=== PATIENT | female | born 1975 | race Asian ===

== ENCOUNTER 2025-03-19 11:48 | Inpatient (IN) | payer BC ==
[~2025-03-19] VITALS: Ht 160 cm; Wt 79.4 kg
[2025-03-19 11:50] VITALS: O2SAT 98
[2025-03-19] MEDS: ONDANSETRON HCL 4MG/2ML INJ IV ONE ×2 (13:41→15:50)
[2025-03-19] MEDS: CLONIDINE 0.1MG TABLET PO ONE (13:42)
[2025-03-19] MEDS: MORPHINE SULFATE 4 MG/ML INJ (FOR IV/IM USE) IV ONE ×2 (13:42→15:50)
[2025-03-19] MEDS: KETOROLAC 15MG/ML VIAL IV ONE (13:42)
[2025-03-19] MEDS: SODIUM CHLORIDE 0.9% 1,000 ML IV ONE (13:43)
[2025-03-19 14:16] LABS: BASOPHILS % 0.4 % (0.0-2.0); EOSINOPHILS % 2.6 % (0.0-5.0); HEMATOCRIT. 35.8 % (36.0-48.0); HEMOGLOBIN. 11.8 g/dL (12.0-16.0); LYMPHOCYTES % 24.6 % (20.0-50.0); MEAN PLATELET VOLUME 8.1 fl (7.4-10.4); MONOCYTES % 7.4 % (2.0-8.0); NEUTROPHILS % 65.0 % (40.0-76.0); PLATELET 196 x1000/uL (130-400); RED BLOOD CELL COUNT 3.94 mill/uL (4.2-5.4); RED CELL DISTRIBUTION WIDTH 13.2 % (11.6-14.6)
[2025-03-19 14:33] LABS: HCG SCREEN NEGATIVE
[2025-03-19 14:36] LABS: CREATININE 0.8 mg/dL (0.6-1.0); UREA NITROGEN BLOOD 16 mg/dL (9-23)
[2025-03-19 14:37] LABS: PROTEIN TOTAL 6.3 g/dL (6.0-8.3)
[2025-03-19 14:38] LABS: ASPARTATE AMINOTRANSFERASE 16 IU/L (<34); BILIRUBIN DIRECT 0.2 mg/dL (<=3.0); TROPONIN I HIGH SENSITIVITY 5 ng/L (3.0-34)
[2025-03-19 14:39] LABS: BILIRUBIN TOTAL 0.5 mg/dL (0.1-1.0)
[2025-03-19 17:01] LABS: CLARITY URINE CLOUDY (CLEAR); GLUCOSE URINE NEGATIVE (NEGATIVE); KETONES URINE NEGATIVE (NEGATIVE); LEUKOCYTE ESTERASE URINE NEGATIVE (NEGATIVE); NITRITE URINE NEGATIVE (NEGATIVE); OCCULT BLOOD URINE NEGATIVE (NEGATIVE); PH URINE 7.0 (4.5-8.0); PROTEIN URINE NEGATIVE (NEGATIVE); SPECIFIC GRAVITY URINE 1.015 (1.005-1.030); UROBILINOGEN URINE 0.2 E.U./dL (0.2-1.0)
[2025-03-19 18:08] LABS: COLOR URINE STRAW (YELLOW)
[2025-03-19 18:10] LABS: RBC URINE NONE SEEN /hpf (0-2); WBC URINE NONE SEEN /hpf (0-2)
[2025-03-19 18:11] LABS: AMORPHOUS SEDIMENT URINE 3+ /lpf; BACTERIA URINE NONE SEEN; SQUAMOUS EPITHELIAL CELL URINE FEW /lpf (RARE/1+)
[2025-03-19 20:00] VITALS: BP 171/98; PULSE 61; RESP 20; TEMP 35.862
[2025-03-19] MEDS: MORPHINE SULFATE 4 MG/ML INJ (FOR IV/IM USE) IV NR (22:27)
[2025-03-19] MEDS ORDERED: ZOLPIDEM TARTRATE 5MG TABLET PO PRN (22:45)
[2025-03-19] MEDS ORDERED: DIPHENHYDRAMINE 50MG/ML VIAL IV PRN (22:45)
[2025-03-19] MEDS ORDERED: ACETAMINOPHEN 325MG TABLET PO PRN ×2 (22:45)
[2025-03-19] MEDS ORDERED: HYDRALAZINE 20MG/ML VIAL IV PRN (22:45)
[2025-03-19] MEDS: PANTOPRAZOLE SODIUM 40 MG/VIAL IV SCH (23:07)
[2025-03-19] MEDS: SODIUM CHLORIDE 0.9% 1,000 ML IV SCH (23:07)
[2025-03-19] MEDS: TAMSULOSIN HCL 0.4MG SR CAPSULE PO SCH (23:10)
[2025-03-19 23:56] VITALS: BP 143/83; PULSE 67; RESP 20; TEMP 36.7; O2SAT 98
[2025-03-20 04:00] VITALS: BP 132/71; PULSE 66; RESP 20; TEMP 36.5; O2SAT 99
[2025-03-20] MEDS: ONDANSETRON HCL 4MG/2ML INJ IV PRN (06:05)
[2025-03-20 08:50] VITALS: BP 136/93; PULSE 81; RESP 20; TEMP 36.6; O2SAT 100
[2025-03-20] MEDS: CLONIDINE 0.1MG TABLET PO PRN (09:46)
[2025-03-20] MEDS: KETOROLAC 30MG/ML VIAL IV PRN (10:03)
[2025-03-20] MEDS: SODIUM CHLORIDE 0.9% 1,000 ML IV SCH (11:00)
[2025-03-20] MEDS ORDERED: ONDANSETRON HCL 4MG/2ML INJ IV PRN (11:45)
[2025-03-20] MEDS ORDERED: HYDROMORPHONE HCL/PF 1MG/ML INJ IV PRN (11:45)
[2025-03-20] MEDS ORDERED: ACETAMINOPHEN 1000MG/100ML 100 ML IV ONE (11:50)
[2025-03-20] MEDS ORDERED: ALBUTEROL 6.7GM HFA INHALER ONE (11:56)
[2025-03-20] MEDS ORDERED: METOCLOPRAMIDE HCL 10MG/2ML VIAL ONE (12:03)
[2025-03-20] MEDS ORDERED: ONDANSETRON HCL 4MG/2ML INJ ONE (12:03)
[2025-03-20] MEDS ORDERED: MIDAZOLAM HCL 2 MG/2 ML VIAL ONE (12:04)
[2025-03-20] MEDS ORDERED: PROPOFOL 200MG/20ML VIAL IV ONE (12:05)
[2025-03-20] MEDS ORDERED: CEFAZOLIN SODIUM 1000MG/VIAL ONE (12:17)
[2025-03-20 12:21] VITALS: BP 116/82; PULSE 77; RESP 18; TEMP 36.6; O2SAT 96
[2025-03-20] MEDS ORDERED: KETOROLAC 30MG/ML VIAL ONE (12:51)
[2025-03-20] MEDS: KETOROLAC 15MG/ML VIAL IV SCH (13:30)
[2025-03-20] MEDS: MORPHINE SULFATE 4 MG/ML INJ (FOR IV/IM USE) IV PRN (15:12)
[2025-03-20 16:00] VITALS: BP 113/56; PULSE 66; RESP 20; TEMP 36.4; O2SAT 97
[2025-03-20] MEDS ORDERED: NALOXONE HCL 0.4MG/ML VIAL IV PRN (19:15)
[2025-03-20 20:00] VITALS: BP 136/86; PULSE 64; RESP 20; TEMP 36.5; O2SAT 98
[2025-03-20] MEDS: HYDROCODONE/ACETAMINOPHEN 10/325MG TABLET PO PRN (21:37)
[2025-03-20] MEDS: HYDRALAZINE HCL 100MG TABLET PO SCH (21:38)
[2025-03-20] MEDS: BISACODYL 5MG TABLET PO PRN (23:36)
[2025-03-21] VITALS: BP 125/66; PULSE 64; RESP 20; TEMP 36.7; O2SAT 99
[2025-03-21 04:00] VITALS: BP 142/73; PULSE 65; RESP 20; TEMP 36.4; O2SAT 100
[2025-03-21 07:57] LABS: BASOPHILS % 0.2 % (0.0-2.0); EOSINOPHILS % 0.4 % (0.0-5.0); HEMATOCRIT. 34.3 % (36.0-48.0); HEMOGLOBIN. 11.6 g/dL (12.0-16.0); LYMPHOCYTES % 13.8 % (20.0-50.0); MEAN PLATELET VOLUME 8.5 fl (7.4-10.4); MONOCYTES % 4.7 % (2.0-8.0); NEUTROPHILS % 80.9 % (40.0-76.0); PLATELET 172 x1000/uL (130-400); RED BLOOD CELL COUNT 3.80 mill/uL (4.2-5.4); RED CELL DISTRIBUTION WIDTH 13.1 % (11.6-14.6)
[2025-03-21 08:00] VITALS: BP 128/76; PULSE 81; RESP 18; TEMP 36.4; O2SAT 100
[2025-03-21 08:03] LABS: UREA NITROGEN BLOOD 9 mg/dL (9-23)
[2025-03-21 08:05] LABS: PHOSPHORUS 2.6 mg/dL (2.5-4.9)
[2025-03-21 08:54] LABS: CREATININE 0.5 mg/dL (0.6-1.0)
[2025-03-21 12:00] VITALS: BP 116/73; PULSE 74; RESP 17; TEMP 36.7; O2SAT 98
[2025-03-21 13:04] VITALS: BP 136/74; PULSE 87; RESP 18; TEMP 98.2
== END 2025-03-21 15:41 | disposition home or self-care (01) | DRG 694 ==
LOC: ER 11:48 → EDBEDREQ 16:00 → EDBEDREQTM 16:00 → 7WST 19:50
PROVIDERS: ADMIT Internal Medicine; ATTEND Internal Medicine
PROC: 0TC68ZZ Extirpation of Matter from Right Ureter, Via Natural or Artificial Opening Endoscopic (ICD-10-PCS; principal; 2025-03-20)
DX: N13.2 Hydronephrosis with renal and ureteral calculous obstruction (principal); G47.30 Sleep apnea, unspecified; I10 Essential (primary) hypertension; Z87.442 Personal history of urinary calculi
CPT/HCPCS: 36415; 71045; 74176; 74420; 80048; 80076; 81003; 82360; 82962; 83735; 84100; 84484; 84703; 85025; 88300; 93005; 99285; C1769; J0690; J1885; J2250; J2270; J2405; J2470; J2704; J2765; J7030; A4217; C1889; J0131